=== PATIENT | female | born 1955 | race Asian ===

== ENCOUNTER 2016-09-28 15:50 | Emergency (ER) | payer MEDICAID ==
[2016-09-28 16:00] VITALS: TEMP 98.4
[2016-09-28] MEDS ORDERED: IPRATROPIUM/ALBUTEROL 3 ML DEYVIAL IH ONE (17:15)
--- NOTE | 2016-09-28 17:15 | EDPHY ---
H & P Stated Complaint: fever, chilss, cough for several days. Time Seen by Provider: 09/28/16 17:06 HPI/ROS: CHIEF COMPLAINT: Fever HISTORY OF PRESENT ILLNESS: The patient is a 61-year-old Chinese female who comes to the emergency department complaining of a fever up to 103 at home as well as body aches. She has also had a mild respiratory infection and dry cough. The patient's daughter is here translating states that all of her kids have also been sick with the same symptoms. The patient does have a history of asthma and a mild wheeze. She has used her albuterol inhaler 3 times today. REVIEW OF SYSTEMS: Constitutional: See HPI EENTM: See HPI Respiratory: See HPI Cardiac: denies: chest pain, irregular heart rate, lightheadedness, palpitations Gastrointestinal/Abdominal: denies: abdominal pain, diarrhea, nausea, vomiting, blood streaked stools Genitourinary: denies: dysuria, frequency, hematuria, pain Musculoskeletal: denies: joint pain, muscle pain Skin: denies: lesions, rash, jaundice, bruising Neurological: denies: headache, numbness, paresthesia, tingling, dizziness, weakness Hematologic/Lymphatic: denies: blood clots, easy bleeding, easy bruising Immunologic/allergic: denies: HIV/AIDS, transplant EXAM: GENERAL: Well-appearing, well-nourished and in no acute distress. HEAD: Atraumatic, normocephalic. EYES: Pupils equal round and reactive to light, extraocular movements intact, sclera anicteric, conjunctiva are normal. ENT: TMs normal, nares patent, oropharynx clear without exudates. Moist mucous membranes. NECK: Normal range of motion, supple without lymphadenopathy or JVD. LUNGS: Mild bilateral wheezing, no rhonchi HEART: Regular rate and rhythm without murmurs, rubs or gallops. ABDOMEN: Soft, nontender, normoactive bowel sounds. No guarding, no rebound. No masses appreciated. BACK: No CVA tenderness, no spinal tenderness, step-offs or deformities EXTREMITIES: Normal range of motion, no pitting or edema. No clubbing or cyanosis. NEUROLOGICAL: Cranial nerves II through XII grossly intact. Normal speech, normal gait. 5/5 strength, normal movement in all extremities, normal sensation PSYCH: Normal mood, normal affect. SKIN: Warm, dry, normal turgor, no visible rashes or lesions. Source: Patient Exam Limitations: No limitations - Personal History Current Tetanus/Diphtheria Vaccine: Yes Tetanus Vaccine Date: 2013 - Medical/Surgical History Hx Asthma: No Hx Chronic Respiratory Disease: No Hx Diabetes: Yes Hx Cardiac Disease: No Hx Renal Disease: No Hx Cirrhosis: No Hx Alcoholism: No Hx HIV/AIDS: No Hx Splenectomy or Spleen Trauma: No Other PMH: NIDDM. htn, high cholesterol - Family History Significant Family History: Hypertension - Social History Smoking Status: Never smoked Alcohol Use: None Drug Use: None Constitutional: Initial Vital Signs Temperature (C) 36.9 C 09/28/16 15:58 Heart Rate 98 09/28/16 15:58 Respiratory Rate 16 09/28/16 15:58 Blood Pressure 120/75 09/28/16 15:58 O2 Sat (%) 95 09/28/16 15:58 O2 Delivery Mode Room Air Allergies/Adverse Reactions: codeine Allergy (Intermediate, Verified 09/28/16 16:00) Vomiting Home Medications: Medication Instructions Recorded Lisinopril [Zestril 5 mg (*)] 5 mg PO DAILY 08/04/14 Metformin HCl [Metformin 1000 mg] 1,000 mg PO BIDMEAL 08/04/14 Mirtazapine [Remeron soltab 15 mg 15 mg PO HS 08/04/14 (*)] Repaglinide [Prandin] 1 mg PO AC 08/04/14 Sertraline HCl [Zoloft 50mg (*)] 100 mg PO DAILY 08/04/14 Simvastatin [Zocor 20 mg] 20 mg PO DAILY18 08/04/14 glipiZIDE [Glipizide] 20 mg PO BID 08/04/14 Azithromycin [Zithromax] 500 mg PO DAILY #2 tab 08/07/14 guaiFENesin [Mucinex 600 MG (*)] 600 mg PO BID #0 tab.er 08/07/14 levOFLOXACIN [levAQUIN (*)] 500 mg PO DAILY10 #2 tab 08/07/14 AZITHROMYCIN [Z-PACK] 250 mg PO DAILY #4 tab 09/28/16 Albuterol Sulfate [ALBUTEROL 0.63 mg IH TID #30 vial.neb 09/28/16 SULFATE] Albuterol [Proventil Inhaler] 1 - 2 puffs IH Q4H #1 mdi 09/28/16 predniSONE 60 mg PO DAILY #15 tab 09/28/16 Medical Decision Making - Diagnostics Imaging: X-ray: chest x-ray was obtained. I viewed the images myself on the PACS system. My interpretation of the images is: Positive for bronchitis. The radiologist interpretation is bronchitis. ED Course/Re-evaluation: Patient's flu test is negative. Her vital signs are stable. Her x-ray is consistent with bronchitis. She is doing better after nebulization. Her oxygen saturations 97%. She is not tachycardic or febrile. Will treat her for bronchitis with steroids, albuterol and azithromycin. Her daughter is agreeable with this and is requesting the vials for their home nebulizer. We discussed indications for returning to the emergency department. The patient feels comfortable going home. Differential Diagnosis: Partial list of the Differential diagnosis considered include but were not limited to; bronchitis, asthma exacerbation, influenza, viral syndrome and although unlikely based on the history and physical exam, I also considered pneumonia, acute coronary disease, sepsis. I discussed these differential diagnoses and the plan with the patient as well as the usual and expected course. The patient understands that the diagnosis is provisional and that in medicine we are not always correct and that further workup is often warranted. Usual and customary warnings were given. All of the patient's questions were answered. The patient was instructed to return to the emergency department should the symptoms at all worsen or return, otherwise to followup with the physician as we discussed. - Data Points Laboratory Results: 09/28/16 17:15 Influenza Typ A,B (DFA) NEGATIVE FOR FLU (NEGATIVE) Medications Given: Discontinued Medications Albuterol/Ipratropium (Duoneb) 3 ml IH EDNOW ONE Stop: 09/28/16 17:16 Last Admin: 09/28/16 17:35 Dose: 3 ml Azithromycin (Zithromax) 500 mg PO EDNOW ONE PRN Reason: Protocol Stop: 09/28/16 18:24 Last Admin: 09/28/16 18:34 Dose: 500 mg Prednisone (Prednisone) 60 mg PO EDNOW ONE Stop: 09/28/16 18:24 Last Admin: 09/28/16 18:34 Dose: 60 mg Departure - Departure Disposition: Home, Routine, Self-Care Clinical Impression: Bronchitis, Asthma exacerbation Condition: Fair Instructions: Asthma (ED), Acute Bronchitis (ED), How to Use a Nebulizer (ED) Referrals: Hoa Roberts MD [Primary Care Provider] - As per Instructions Prescriptions: Albuterol [Proventil Inhaler] 1 - 2 puffs IH Q4H #1 mdi Albuterol Sulfate [ALBUTEROL SULFATE] 0.63 mg IH TID #30 vial.neb AZITHROMYCIN [Z-PACK] 250 mg PO DAILY #4 tab predniSONE 60 mg PO DAILY #15 tab
[2016-09-28] MEDS ORDERED: AZITHROMYCIN 250 MG TAB PO ONE (18:23)
[2016-09-28] MEDS ORDERED: predniSONE 20 MG TAB PO ONE (18:23)
[2016-09-28 18:28] VITALS: BP 115/73; PULSE 84; RESP 16; O2SAT 96
== END 2016-09-28 18:34 | disposition home or self-care (01) ==
DX: J45.901 Unspecified asthma with (acute) exacerbation (principal); J20.9 Acute bronchitis, unspecified; E11.9 Type 2 diabetes mellitus without complications; I10 Essential (primary) hypertension

== ENCOUNTER 2017-04-08 08:55 | Emergency (ER) | payer MEDICAID ==
--- NOTE | 2017-04-08 09:22 | EDPHY ---
H & P Stated Complaint: Flu like sxs x 1 wk w/low grade fever,nausea,body aches,cough Time Seen by Provider: 04/08/17 09:08 HPI/ROS: CHIEF COMPLAINT: Fever, body aches HISTORY OF PRESENT ILLNESS: This patient is a 62 year old female arriving with her daughter complaining of fever and body aches onset one week ago. She was recently travelling in [place] for six weeks, and then in [place] for two weeks. She returned last Thursday03/31/17, 8 days ago. She developed fever and body aches, and began taking Zithromax. She had diarrhea and vomiting Thursday and Thursday after she started her antibiotics, but these symptoms have resolved. She does have nausea , and has had a lack of appetite. She has been staying hydrated with water and electrolyte replenishment beverages. She endorses some chest discomfort similar to a feeling of mucous. She denies sore throat, runny nose, urinary complaints, or other associated symptoms. Her daughter at bedside mentions that there have been many occurrences of swine flu in [place] recently. The family the patient was staying with are currently ill with cold-like symptoms, but have been evaluated and were not diagnosed with swine flu at that time. HPI obtained primarily through daughter translating at bedside. REVIEW OF SYSTEMS: A 10 point review of systems was performed and is negative with the exception of the elements mentioned in the history of present illness. - Personal History Current Tetanus Diphtheria and Acellular Pertussis (TDAP): Yes Tetanus Vaccine Date: 2013 - Medical/Surgical History PMH: Hypertension, hyperlipidemia, Diabetes Mellitus Type II. Hx Asthma: No Hx Chronic Respiratory Disease: No Hx Diabetes: Yes Hx Cardiac Disease: No Hx Renal Disease: No Hx Cirrhosis: No Hx Alcoholism: No Hx HIV/AIDS: No Hx Splenectomy or Spleen Trauma: No Other PMH: NIDDM. htn, high cholesterol - Social History Smoking Status: Never smoked Additional Social History: Daughter at bedside. Originally from [facility]. Lives in [place]. - Physical Exam Exam: General Appearance: Alert, nontoxic appearing Eyes: Pupils equal and round, no conjunctival pallor or injection ENT, Mouth: Mucous membranes moist, no pharyngeal erythema Neck: Normal inspection, no adenopathy Respiratory: Lungs are clear to auscultation Cardiovascular: Regular rate and rhythm Gastrointestinal: Abdomen is soft and non-tender Back: No CVA tenderness Neurological: A&O, nonfocal, normal gait Skin: Warm and dry, no rash Extremities: Nontender, no pedal edema Psychiatric: Mood and affect normal Constitutional: Initial Vital Signs Temperature (C) 37 C 04/08/17 08:58 Heart Rate 96 04/08/17 08:58 Respiratory Rate 18 04/08/17 08:58 Blood Pressure 125/72 H 04/08/17 08:58 O2 Sat (%) 95 04/08/17 08:58 O2 Delivery Mode Room Air Allergies/Adverse Reactions: codeine Allergy (Mild, Verified 04/08/17 08:55) Vomiting Home Medications: Medication Instructions Recorded Lisinopril [Zestril 5 mg (*)] 5 mg PO DAILY 08/04/14 Metformin HCl [Metformin 1000 mg] 1,000 mg PO BIDMEAL 08/04/14 Mirtazapine [Remeron soltab 15 mg 15 mg PO HS 08/04/14 (*)] Repaglinide [Prandin] 1 mg PO AC 08/04/14 Sertraline HCl [Zoloft 50mg (*)] 100 mg PO DAILY 08/04/14 Simvastatin [Zocor 20 mg] 20 mg PO DAILY18 08/04/14 glipiZIDE [Glipizide] 20 mg PO BID 08/04/14 Cefdinir [Omnicef (*)] 300 mg PO BID #20 cap 04/08/17 Ondansetron Odt [Zofran Odt 4 mg 4 mg PO Q4 PRN #6 tab 04/08/17 (*)] Medical Decision Making - Diagnostics Imaging Results: Imaging Impressions Chest X-Ray 04/08/17 09:09 Impression: Possible mild bronchitis without evidence of pneumonia. Imaging: I viewed and interpreted images myself ED Course/Re-evaluation: 62 year old female presents with one week history of fever and body aches following international travel, most recently in [place]. Plan for labs including CBC, BMP, UA. Plan for flu swab, chest x-ray. Plan to administer 4mg IV Zofran and 1L IV NS for symptom relief. 09:40 Reviewed chest x-ray. No evidence of infiltrate. Dr. Archibald, radiologist, concurs: possible mild bronchitis without evidence of pneumonia. UA positive for UTI. Urine cx sent. Rocephin 1gm IV given. Plan to discharge home in good condition with prescription for Omnicef. Follow up and return precautions discussed. The patient and her daughter are comfortable with this plan. Differential Diagnosis: Differential diagnosis includes pyelonephritis, cholecystitis, influenza, cellulitis, pneumonia, abscess, meningitis. - Data Points Laboratory Results: Laboratory Results 04/08/17 09:15 04/08/17 09:15 04/08/17 04/08/17 04/08/17 10:52 09:15 09:15 WBC RBC Hgb Hct MCV MCH MCHC RDW Plt Count MPV Neut % (Auto) Lymph % (Auto) [place] % (Auto) Eos % (Auto) Baso % (Auto) Nucleat RBC Rel Count Absolute Neuts (auto) Absolute Lymphs (auto) Absolute Monos (auto) Absolute Eos (auto) Absolute Basos (auto) Absolute Nucleated RBC Immature Gran % Immature Gran # Sodium 132 mEq/L L mEq/L (134-144) Potassium 4.2 mEq/L mEq/L (3.5-5.2) Chloride 96 mEq/L L mEq/L (97-110) Carbon Dioxide 26 mEq/l mEq/l (22-31) Anion Gap 10 mEq/L mEq/L (8-16) BUN 16 mg/dL mg/dL (7-23) Creatinine 0.8 mg/dL mg/dL (0.6-1.0) Estimated GFR > 60 Glucose 310 mg/dL H mg/dL (70-100) Calcium 9.0 mg/dL mg/dL (8.5-10.4) Urine Color YELLOW Urine Appearance HAZY Urine pH 5.0 (5.0-7.5) Ur Specific [place] 1.012 (1.002-1.030) Urine Protein NEGATIVE (NEGATIVE) Urine Ketones NEGATIVE (NEGATIVE) Urine Blood 1+ H (NEGATIVE) Urine Nitrate POSITIVE H (NEGATIVE) Urine Bilirubin NEGATIVE (NEGATIVE) Urine Urobilinogen NEGATIVE EU EU (0.2-1.0) Ur Leukocyte Esterase 1+ H (NEGATIVE) Urine RBC 1-3 /hpf /hpf (0-3) Urine WBC 25-50 /hpf H /hpf (0-3) Ur Epithelial Cells TRACE /lpf /lpf (NONE-1+) Urine Bacteria 1+ /hpf H /hpf (NONE SEEN) Urine Mucus TRACE /lpf /lpf (NONE-1+) Urine Glucose 3+ H (NEGATIVE) Influenza A & B (PCR) NEGATIVE FOR FLU (NEGATIVE) 04/08/17 09:15 WBC 9.85 10^3/uL H 10^3/uL (3.80-9.50) RBC 3.85 10^6/uL L 10^6/uL (4.18-5.33) Hgb 11.6 g/dL L g/dL (12.6-16.3) Hct 34.6 % L % (38.0-47.0) MCV 89.9 fL fL (81.5-99.8) MCH 30.1 pg pg (27.9-34.1) MCHC 33.5 g/dL g/dL (32.4-36.7) RDW 12.2 % % (11.5-15.2) Plt Count 266 10^3/uL 10^3/uL (150-400) MPV 9.7 fL fL (8.7-11.7) Neut % (Auto) 48.9 % % (39.3-74.2) Lymph % (Auto) 43.0 % % (15.0-45.0) [place] % (Auto) 6.3 % % (4.5-13.0) Eos % (Auto) 1.2 % % (0.6-7.6) Baso % (Auto) 0.3 % % (0.3-1.7) Nucleat RBC Rel Count 0.0 % % (0.0-0.2) Absolute Neuts (auto) 4.81 10^3/uL 10^3/uL (1.70-6.50) Absolute Lymphs (auto) 4.24 10^3/uL H 10^3/uL (1.00-3.00) Absolute Monos (auto) 0.62 10^3/uL 10^3/uL (0.30-0.80) Absolute Eos (auto) 0.12 10^3/uL 10^3/uL (0.03-0.40) Absolute Basos (auto) 0.03 10^3/uL 10^3/uL (0.02-0.10) Absolute Nucleated RBC 0.00 10^3/uL 10^3/uL (0-0.01) Immature Gran % 0.3 % % (0.0-1.1) Immature Gran # 0.03 10^3/uL 10^3/uL (0.00-0.10) Sodium Potassium Chloride Carbon Dioxide Anion Gap BUN Creatinine Estimated GFR Glucose Calcium Urine Color Urine Appearance Urine pH Ur Specific [place] Urine Protein Urine Ketones Urine Blood Urine Nitrate Urine Bilirubin Urine Urobilinogen Ur Leukocyte Esterase Urine RBC Urine WBC Ur Epithelial Cells Urine Bacteria Urine Mucus Urine Glucose Influenza A & B (PCR) Medications Given: Discontinued Medications Sodium Chloride (Ns) 1,000 mls @ 0 mls/hr IV EDNOW ONE; Wide Open PRN Reason: Protocol Stop: 04/08/17 09:26 Last Admin: 04/08/17 09:42 Dose: 1,000 mls Ceftriaxone Sodium/Dextrose (Rocephin 1 Gm (Premix)) 50 mls @ 100 mls/hr IV EDNOW ONE PRN Reason: Protocol Stop: 04/08/17 11:51 Last Admin: 04/08/17 11:36 Dose: 50 mls Ondansetron HCl (Zofran) 4 mg IVP EDNOW ONE Stop: 04/08/17 09:26 Last Admin: 04/08/17 09:43 Dose: 4 mg Departure - Departure Disposition: Home, Routine, Self-Care Clinical Impression: UTI (urinary tract infection) Qualifiers: Urinary tract infection type: acute cystitis Hematuria presence: without hematuria Qualified Code(s): N30.00 - Acute cystitis without hematuria Condition: Good Instructions: Urinary Tract Infection in Women (ED) Additional Instructions: 1. Take your Omnicef as prescribed. It is important to finish your entire course of antibiotics, even if you are feeling better. Follow up with Dr. Roberts this week for continued management of symptoms. Call the ED for your flu test results. 2. You may take 600mg Ibuprofen every 6 hours or 650 mg Tylenol (acetaminophen) every 6 hours as needed for fever and achiness. Alternate Tylenol and Ibuprofen every 3 hours as we discussed. 3. Stay well hydrated. Take Zofran as prescribed as needed for nausea. 4. Return to the emergency department for uncontrollable fever, flank pain, chest pain, shortness of breath, uncontrollable vomiting or diarrhea, or other worsening of condition. Referrals: Hoa Roberts MD [Primary Care Provider] - As per Instructions Prescriptions: Cefdinir [Omnicef (*)] 300 mg PO BID #20 cap Ondansetron Odt [Zofran Odt 4 mg (*)] 4 mg PO Q4 PRN #6 tab PRN Reason: Nausea Report Scribed for: Corie Richter Report Scribed by: Kinza Baires Date of Report: 04/08/17 Time of Report: 09:22 Physician Review and Approval Statement: 04/08/17 09:22 Portions of this note were transcribed by a medical instrument cable fabricator. I personally performed a history, physical exam, medical decision making, and confirmed accuracy of information the transcribed note.
[2017-04-08] MEDS ORDERED: NS 1,000 ML IV ONE (09:25)
[2017-04-08] MEDS ORDERED: ONDANSETRON 4 MG/2 ML VIAL IVP ONE (09:25)
[2017-04-08 09:36] LABS: % IMMATURE GRANULYOCYTES 0.3 % (0.0-1.1); ABSOLUTE IMMATURE GRANULOCYTES 0.03 10^3/uL (0.00-0.10); ADD DIFF? NO; ADD MORPH? NO; ADD SCAN? NO; ATYPICAL LYMPHOCYTE FLAG 70 (0-99); FRAGMENT RBC FLAG 0 (0-99); HEMATOCRIT 34.6 % (38.0-47.0); HEMOGLOBIN 11.6 g/dL (12.6-16.3); LEFT SHIFT FLG 0 (0-99); LIPEMIA HEMOLYSIS FLAG 80 (0-99); MEAN CELL HEMOGLOBIN 30.1 pg (27.9-34.1); MEAN CELL HEMOGLOBIN CONCENTR. 33.5 g/dL (32.4-36.7); MEAN CELL VOLUME 89.9 fL (81.5-99.8); MEAN PLATELET VOLUME 9.7 fL (8.7-11.7); PLATELET CLUMPS FLAG 10 (0-99); PLATELET COUNT 266 10^3/uL (150-400); RED BLOOD CELL COUNT 3.85 10^6/uL (4.18-5.33); RED CELL DISTRIBUTION WIDTH 12.2 % (11.5-15.2)
[2017-04-08 09:54] LABS: CREATININE 0.8 mg/dL (0.6-1.0); GLOMERULAR FILTRATION RATE > 60; GLUCOSE 310 mg/dL (70-100)
[2017-04-08 09:58] LABS: ANION GAP 10 mEq/L (8-16); CARBON DIOXIDE 26 mEq/l (22-31); CHLORIDE 96 mEq/L (97-110); POTASSIUM 4.2 mEq/L (3.5-5.2); SODIUM 132 mEq/L (134-144)
[2017-04-08 11:05] LABS: COLOR YELLOW; LEUKOCYTE ESTERASE,URINE 1+ (NEGATIVE); NITRITE,URINE POSITIVE (NEGATIVE)
[2017-04-08 11:16] LABS: WBC,URINE 25-50 /hpf (0-3)
[2017-04-08 11:17] LABS: BACTERIA 1+ /hpf (NONE SEEN); MUCUS TRACE /lpf (NONE-1+)
[2017-04-08 12:38] VITALS: BP 102/54; PULSE 63; RESP 18; TEMP 98.6; O2SAT 96
== END 2017-04-08 12:35 | disposition home or self-care (01) ==
DX: N30.00 Acute cystitis without hematuria (principal); B96.20 Unspecified Escherichia coli [E. coli] as the cause of diseases classified elsewhere; E86.9 Volume depletion, unspecified; I10 Essential (primary) hypertension; E11.9 Type 2 diabetes mellitus without complications; Z79.84 Long term (current) use of oral hypoglycemic drugs
CPT/HCPCS: 96365; J0696